=== PATIENT | male | born 1945 | race Caucasian/White ===

== ENCOUNTER 2016-12-31 15:45 | Emergency (ER) | payer OTHER ==
[2016-12-31 16:10] LABS: MANUAL DIFF NEEDED? NO
--- NOTE | 2016-12-31 16:17 | EKG Report ---
Test Performed on : 12/31/2016 3:59:27 PM Test Reason : dizziness Blood Pressure : / mmHG Vent. Rate : 074 BPM Atrial Rate : 074 BPM P-R Int : 172 ms QRS Dur : 098 ms QT Int : 396 ms P-R-T Axes : 055 -09 054 degrees QTc Int : 439 ms Normal sinus rhythm. Normal ECG When compared with ECG of 28-MAY-2016 09:24, Nonspecific T wave abnormality has replaced inverted T waves in Inferior leads Nonspecific T wave abnormality no longer evident in Anterolateral leads Unconfirmed Result
[2016-12-31 16:29] LABS: BASO% 0.5 % (0.0-0.8); EOS% 1.1 % (0.0-10.0); HEMATOCRIT 39.6 % (42.0-52.0); HEMOGLOBIN 12.9 g/dL (14.0-18.0); IMM GRAN# 0.02 X1000 (0.0-0.04); IMM GRAN% 0.2 % (0.0-0.5); LYMPH# 1.84 X1000 (1.2-3.4); LYMPH% 20.9 % (20.5-51.1); MCH 31.2 PG (27-31); MCHC 32.6 g/dL (33-37); MCV 95.7 FL (81-99); MONO# 0.66 X1000 (0.11-0.59); MONO% 7.5 % (1.7-9.3); MPV 9.8 FL (7.4-10.4); NEUT% 69.8 % (42.2-75.2); PLT 214 X1000 (130-400); RBC 4.14 XMIL (4.7-6.1)
[2016-12-31 16:48] LABS: AGAP 13; ALBUMIN 4.1 g/dL (3.5-5.0); ALKALINE PHOSPHATASE 73 U/L (32-122); BUN 16 mg/dL (8-22); CALCIUM 8.9 mg/dL (8.8-10.2); CHLORIDE 102 mmol/L (98-107); CK PROFILE 66 U/L (24-204); COSMO 281; GOT 18 U/L (10-34); GPT < 5 U/L (10-44); POTASSIUM 4.3 mmol/L (3.5-5.1); SODIUM 139 mmol/L (136-145); TCO2 24 mmol/L (25-35); TOTAL BILIRUBIN 0.23 mg/dL (0.20-1.00); TOTAL PROTEIN 6.7 g/dL (6.3-8.3)
--- NOTE | 2016-12-31 17:05 | PROVIDER DOCUMENTATION ---
HPI-General Adult - General Chief Complaint: Dizziness Stated Complaint: BP ISSUES/DIZZINESS Time Seen by Provider: 12/31/16 17:01 Source: patient Allergies/Adverse Reactions: Patient Allergies Allergy/AdvReac Type Severity Reaction Status Date / Time Penicillins Allergy Mild welps Verified 12/31/16 20:14 aspirin AdvReac Mild abd pain Verified 12/31/16 20:14 hydromorphone HCl * AdvReac confusion, Verified 12/31/16 20:14 [From Dilaudid] combative Home Medications: Home Medication List Medication Instructions Recorded Confirmed Last Taken Type Clopidogrel [Plavix] 75 mg PO DAILY 11/18/13 12/31/16 12/31/16 09:00 History PRAVAstatin [Pravachol] 40 mg PO DAILY 11/18/13 12/31/16 12/31/16 09:00 History Escitalopram Oxalate [Lexapro] 20 mg PO DAILY 12/25/13 12/31/16 12/31/16 09:00 History Meclizine HCl [Antivert] 25 mg PO 4XDAY PRN PRN #15 tablet 01/29/15 12/31/1604/13 14:00 Rx Amlodipine Besylate 10 mg PO DAILY 05/28/16 12/31/16 12/31/16 09:00 History Carbidopa/Levodopa [Sinemet 25/100] 1 - 1.5 each PO 4XDAY 05/28/16 12/31/1604/13 14:00 History Gabapentin 600 mg PO TID 05/28/16 12/31/16 12/31/16 14:00 History Lisinopril 20 mg PO DAILY 05/28/16 12/31/16 12/31/16 09:00 History Hydrocodone/APAP 5 mg/325 mg 1 each PO Q6H PRN PRN #60 tablet 06/01/16 12/31/16 12/31/16 14:00 Rx [[place]-5] Pantoprazole [Protonix] 40 mg PO DAILY@0700 #30 tablet 06/01/16 12/31/16 09:00 Rx Meclizine [Antivert] 12.5 mg PO TID #30 tablet 12/31/16 Unknown Rx - History of Present Illness -Gen Adult Nature of Presenting Problems: 71 y/o WM c/o 2 days of dizziness, hot flashes, and headaches. States his BP has been unpredictable. states he fell yesterday where he fell into the door due to the dizziness. Dizziness described as both light headedness and the room spinning. states he sees balc, spots when this occurs the dizziness is not related to position, but states when he lays back he sees black spots and the dizziness worsens. states BP has been going up and down, with the highest being 162/87, lowest being 96/50. No hx of stroke, PCI x 1 in 2004 Review of Systems - Adult - REVIEW OF SYSTEMS - ADULT Constitutional: reports: no symptoms reported. denies: chills, fever, fatique Eyes: reports: no symptoms reported. denies: decreased vision, blurred vision, double vision, eye pain Ears, Nose, Mouth & Throat: reports: no symptoms reported. denies: ear pain, nose pain, throat pain Cardiovascular: reports: no symptoms reported. denies: chest pain, palpitations Respiratory: reports: no symptoms reported. denies: cough, shortness of breath , wheezing Gastrointestinal: reports: no symptoms reported. denies: abdominal pain, diarrhea, nausea, vomiting Genitourinary: reports: no symptoms reported. denies: dysuria, discharge, frequency, incontinence Musculoskeletal: reports: no symptoms reported. denies: bone pain, back pain, muscle aches Integumentary: reports: no symptoms reported. denies: rash Neurological: reports: see HPI, dizziness/vertigo, headache/migraines. denies: ataxia, loss of balance, tremors Psychiatric: reports: no symptoms reported Endocrine: reports: no symptoms reported Hematologic/Lymphatic: reports: no symptoms reported Allergic/Immunologic: reports: no symptoms reported All Other Systems: Reviewed and Negative Past History - Adult - PAST MEDICAL HISTORY-ADULT Review of Records: reports: Old Records Reviewed, Nursing Assessment Review, Medications Reviewed Major Childhood Illnesses: reports: denies history Cardiovascular: reports: cardiac disease, HTN, hyperlipidemia Respiratory: reports: denies history Gastrointestinal: reports: GERD, ulcer, other (gastritis) Genitourinary: reports: denies history Musculoskeletal: reports: arthritis, chronic pain (back), fibromyalgia Neurological: reports: denies history Endocrine/Immune: reports: denies history Other Conditions: reports: denies history - PRIOR SURGERIES/PROCEDURES Surgical/Procedure History: reports: cardiac stent (2005), hernia repair, orthopedic (extremity) (left knee) - PRIOR HOSPITALIZATIONS Prior Hospitalizations: reports: none - IMMUNIZATION STATUS Childhood Immunizations: UTD Flu Vaccine: See Nurse Assessment - FAMILY HISTORY Family History: reviewed, not pertinent - SOCIAL HISTORY Smoking: denies Substance Use: none/never Alcohol Use Frequency: never Living Situation: family Physical Exam-General - PHYSICAL EXAM-ADULT Initial Vital Signs Reviewed: Yes - CONSTITUTIONAL General Appearance: appears well, alert, no apparent distress, other (dizzy upon standing) - EYES Eyes: PERRL/EOMI, pink conjunctivae, other (no nystagmus appreciated) - HEAD, EARS, NOSE, MOUTH & THROAT HENMT: normocephalic/atraumatic, moist mucous membranes, normal ENT inspection, TMs normal, pharynx normal. negative: TM abnormal - NECK Neck: non-tender, full range of motion, supple, normal inspection. negative: lymphadenopathy - RESPIRATORY Respiratory: chest non-tender, lungs clear, normal breath sounds, no pleuratic chest pain, no respiratory distress, no accessory muscle use. negative: respiratory distress, decreased breath sounds, accessory muscle use, crackles, rales, rhonchi, wheezing - CARDIOVASCULAR Cardiovascular: normal peripheral pulses, regular rate, rhythm - GASTROINTESTINAL (ABDOMEN) Abdominal Exam: normal bowel sounds, non tender, soft, no organomegaly, no pulsatile mass. 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 II-XII nml as tested, no motor/sensory deficits - PSYCHIATRIC Psych/Mental Status: normal mood/affect, normal thought content, normal thought process, oriented x 3 Progress - PLAN OF CARE/RESULTS Progress/Plan/Lab Results: Vital Signs Temp Pulse Pulse Pulse Pulse Resp BP 12/31/16 20:19 62 65 65 12/31/16 15:50 98.1 F 77 18 105/66 BP BP BP Pulse Ox 03/06/17 20:19 190/98 149/99 200/91 12/31/16 15:50 97 Penicillins Allergy (Mild, Verified 12/31/16 20:14) welps aspirin Adverse Reaction (Mild, Verified 12/31/16 20:14) abd pain hydromorphone HCl * [From Dilaudid] Adverse Reaction (Verified 12/31/16 20:14) confusion, combative Clopidogrel [Plavix] 75 mg PO DAILY 11/18/13 PRAVAstatin [Pravachol] 40 mg PO DAILY 11/18/13 Escitalopram Oxalate [Lexapro] 20 mg PO DAILY 12/25/13 Meclizine HCl [Antivert] 25 mg PO 4XDAY PRN PRN #15 tablet 01/29/15 Amlodipine Besylate 10 mg PO DAILY 05/28/16 Carbidopa/Levodopa [Sinemet 25/100] 1 - 1.5 each PO 4XDAY 05/28/16 Gabapentin 600 mg PO TID 05/28/16 Lisinopril 20 mg PO DAILY 05/28/16 Hydrocodone/APAP 5 mg/325 mg [[place]-5] 1 each PO Q6H PRN PRN #60 tablet Pantoprazole [Protonix] 40 mg PO DAILY@0700 #30 tablet 06/01/16 Laboratory 12/31/16 12/31/16 12/31/16 20:10 16:03 16:03 WBC RBC Hgb Hct MCV MCH MCHC RDW Std Deviation Plt Count MPV Immature Gran % (Auto) Neut % (Auto) Lymph % (Auto) [place] % (Auto) Eos % (Auto) Baso % (Auto) Immature Gran # (Auto) Neut # (Auto) Lymph # (Auto) [place] # (Auto) Eos # (Auto) Baso # (Auto) Sodium 139 Potassium 4.3 Chloride 102 Carbon Dioxide 24 L Anion Gap 13 BUN 16 Creatinine 1.2 Estimated GFR/1.73 m2 59 BUN/Creatinine Ratio 13 Glucose 141 H Calculated Osmolality 281 Calcium 8.9 Total Bilirubin 0.23 AST 18 ALT < 5 L Alkaline Phosphatase 73 Creatine Kinase 66 Troponin T < 0.010 Total Protein 6.7 Albumin 4.1 Globulin 2.6 Albumin/Globulin Ratio 1.6 Urine Source CLEAN CATCH Urine Color STRAW Urine Turbidity CLEAR Urine pH 6.5 Ur Specific [place] 1.005 Urine Protein NEGATIVE Ur Glucose (Stick) NEGATIVE Ur Ketones (Stick) NEGATIVE Urine Blood NEGATIVE Urine Nitrite NEGATIVE Urine Bilirubin NEGATIVE Urobilinogen Dipstick NORMAL Urine Leukocytes NEGATIVE Urine WBC (Auto) <10 Urine RBC (Auto) <10 U Epithel Cells (Auto) <10 Urine Bacteria (Auto) NEGATIVE 12/31/16 16:03 WBC 8.79 RBC 4.14 L Hgb 12.9 L Hct 39.6 L MCV 95.7 MCH 31.2 H MCHC 32.6 L RDW Std Deviation 13.0 Plt Count 214 MPV 9.8 Immature Gran % (Auto) 0.2 Neut % (Auto) 69.8 Lymph % (Auto) 20.9 [place] % (Auto) 7.5 Eos % (Auto) 1.1 Baso % (Auto) 0.5 Immature Gran # (Auto) 0.02 Neut # (Auto) 6.13 Lymph # (Auto) 1.84 [place] # (Auto) 0.66 H Eos # (Auto) 0.10 Baso # (Auto) 0.04 Sodium Potassium Chloride Carbon Dioxide Anion Gap BUN Creatinine Estimated GFR/1.73 m2 BUN/Creatinine Ratio Glucose Calculated Osmolality Calcium Total Bilirubin AST ALT Alkaline Phosphatase Creatine Kinase Troponin T Total Protein Albumin Globulin Albumin/Globulin Ratio Urine Source Urine Color Urine Turbidity Urine pH Ur Specific [place] Urine Protein Ur Glucose (Stick) Ur Ketones (Stick) Urine Blood Urine Nitrite Urine Bilirubin Urobilinogen Dipstick Urine Leukocytes Urine WBC (Auto) Urine RBC (Auto) U Epithel Cells (Auto) Urine Bacteria (Auto) Orders Category Date Time Status ED: Orthostatic Vital Signs (E as directed Care 12/31/16 17:04 Active HEAD W/O CONTRAST [CT] Stat Exams 12/31/16 17:04 Draft CBC WITH ELECTRONIC DIFF [HEME] Stat Lab 12/31/16 16:03 Completed CK PROFILE [SP CHEM] Stat Lab 12/31/16 16:03 Completed COMPREHENSIVE METABOLIC PANEL [CHEM] Stat Lab 12/31/16 16:03 Completed TROPONIN T Stat Lab 12/31/16 16:03 Completed URINALYSIS W/POSS RFLX CULT [URINALYSIS] Stat Lab 12/31/16 20:10 Completed EKG [EKG] Stat Ther 12/31/16 16:03 Draft Discussed patient with Dr. Zavala, agrees with treatment, disposition and plan - CT/MRI 1 CT Study: Head Impression: Normal (no blood. Mild chornic ischemic changes. per Dr. Hernandez, radiology) Departure - Departure Time of Disposition Order: 20:39 DIAGNOSIS: Dizziness, Labile hypertension Disposition: HOME 01 Certified Medical Emergency: Emergent Condition: Stable Additional Instructions: Follow up with Dr. Hawthorne and Dr. Wall, as well as your primary care physician ED Follow Up Instructions: You have been treated by a care provider in the Emergency Department. These instructions are being provided to you so you can have an understanding of how to care for yourself upon discharge. Upon discharge from the Emergency Department, you are responsible for making arrangements for follow-up care by a physician of your choice. Take all prescribed medications as directed. Return to the Emergency Department immediately for any new or worsening symptoms. You may call the Physician Referral phone number at [phone] to obtain a list of Physicians who are taking new patients. Prescriptions: Meclizine [Antivert] 12.5 mg PO TID #30 tablet Referrals: Brandon Bowen MD [Primary Care Provider] - Pablo Hawthorne MD [STAFF PHYSICIAN] - Abbi Wall III, MD [STAFF PHYSICIAN] - Attestation - Physician/ JERE Attestation Patient care was provided by Advanced Practice Provider:: Yes Advanced Practice Provider:: Haven Soto Advanced Practice Provider documentation review:: The Mid-level provider documentation, treatment plan and medical decision making was reviewed by the physician who agrees with all treatment and medical decision making by the P.
--- NOTE | 2016-12-31 17:22 | ED EKG INTERP ---
EKG Interpretation - EKG Time of EKG reading by physician:: 15:59 EKG Read and Signed by:: Ryan Pope EKG Interpretation (*Must complete 3 of following elements*): Normal Rate: 74 Rhythm: NSR [place]: normal QRS: normal [place] Interval: normal ST Wave: normal Attestation - Scribe Verification/Attestation Scribe:: Chase Main Acting as Scribe for:: Ryan Pope Scribe documention review:: This chart was documented by a scribe and accurately reflects the service the provider performed and the decisions made by the provider. Physician Attestation - Physician Attestation I, the provider, attest to the following statement:: Ryan Pope Physician documentation Attestation:: This documentation recorded by the scribe accurately reflects the service I personally performed and the decisions made by me.
[2016-12-31 20:16] LABS: URINE CULTURE NEEDED? NO; URINE MICRO REVIEW NEEDED? NO; URINE SOURCE CLEAN CATCH
[2016-12-31 20:25] LABS: BILIRUBIN URINE NEGATIVE (NEGATIVE); BLOOD URINE NEGATIVE (NEGATIVE); COLOR STRAW; GLUCOSE URINE NEGATIVE (NEGATIVE); LEUKOCYTES URINE NEGATIVE (NEGATIVE); NITRITE URINE NEGATIVE (NEGATIVE); PH URINE 6.5; PROTEIN URINE NEGATIVE (NEGATIVE); SP GRAVITY URINE 1.005; TURBIDITY URINE CLEAR (CLEAR); UROBILINOGEN URINE NORMAL (NORMAL)
[2016-12-31 20:27] LABS: UR EPITHELIAL CELLS <10 /HPF (<10); URINE BACTERIA NEGATIVE /HPF; URINE RBC <10 /HPF (<10); URINE WBC <10 /HPF (<10)
--- NOTE | 2016-12-31 20:29 | Diag Imaging Result Document ---
PROCEDURE NAME: HEAD W/O CONTRAST - 12/31/2016 CT BRAIN WITHOUT CONTRAST COMPARISON: 05/30/16. FINDINGS: No parenchymal hemorrhage. No epidural or subdural hematoma. No subarachnoid hemorrhage. No mass identified on this noncontrasted exam. There are mild microvascular ischemic changes. No hydrocephalus. No sinus opacification. No air fluid levels. IMPRESSION: 1. No hemorrhage. 2. Mild microvascular ischemic changes. A preliminary report was given at 6:24 p.m.
[2016-12-31] MEDS ORDERED: ANTIVERT PO ONE (20:40)
[2016-12-31 22:15] VITALS: BP 191/115
== END 2016-12-31 22:16 | disposition home or self-care (01) ==
LOC: ED 15:45
DX: I10 Essential (primary) hypertension (principal); R42 Dizziness and giddiness; R51 Headache; E78.5 Hyperlipidemia, unspecified; K21.9 Gastro-esophageal reflux disease without esophagitis; M19.90 Unspecified osteoarthritis, unspecified site; M79.7 Fibromyalgia; G89.29 Other chronic pain; Z79.899 Other long term (current) drug therapy; Z95.5 Presence of coronary angioplasty implant and graft; Z79.02 Long term (current) use of antithrombotics/antiplatelets
CPT/HCPCS: 70450; 80053; 81001; 82550; 82948; 84484; 85025; 93005

== ENCOUNTER 2019-06-01 13:14 | Observation (INO) ==
--- NOTE | 2019-06-01 15:54 | PROVIDER DOCUMENTATION ---
HPI-Abdominal Pain/GI Problem - General Chief Complaint: Male Stated Complaint: INCONTINENT Time Seen by Provider: 06/01/19 15:45 Source: patient Allergies/Adverse Reactions: Patient Allergies Allergy/AdvReac Type Severity Reaction Status Date / Time Penicillins Allergy Mild welps Verified 06/01/19 20:51 aspirin AdvReac Mild abd pain Verified 06/01/19 20:51 hydromorphone HCl * AdvReac confusion, Verified 06/01/19 20:51 [From Dilaudid] combative Home Medications: Home Medication List Medication Instructions Recorded Confirmed Last Taken Type Clopidogrel [Plavix] 75 mg PO DAILY 11/18/13 06/01/19 12/31/16 09:00 History PRAVAstatin [Pravachol] 40 mg PO DAILY 11/18/13 06/01/19 12/31/16 09:00 History Meclizine HCl [Antivert] 25 mg PO 4XDAY PRN PRN #15 tablet 01/29/15 06/01/19 12/31/16 14:00 Rx Carbidopa/Levodopa [Sinemet 25/100] 1 - 1.5 each PO 4XDAY 05/28/16 06/01/19 12/31/16 14:00 History Gabapentin 600 mg PO TID 05/28/16 06/01/19 12/31/16 14:00 History Pantoprazole [Protonix] 40 mg PO DAILY@0700 #30 tablet 06/01/16 06/01/19 12/31/16 09:00 Rx Amitriptyline [Elavil] 25 mg PO HS 06/01/19 06/01/19 Unknown History Duloxetine [Cymbalta] 30 mg PO DAILY 06/01/19 06/01/19 Unknown History Esomeprazole [Nexium] 40 mg PO QHS 06/01/19 06/01/19 Unknown History Fenofibrate 160 mg PO QAM 06/01/19 06/01/19 Unknown History Hydrocodone/Acetaminophen 06/01/19 06/01/19 Unknown History [Hydrocodone-Acetamin 7.5-325] Hydrocodone/Acetaminophen 7.5 mg PO Q6HR 06/01/19 06/01/19 Unknown History [Hydrocodone-Acetamin 7.5-325] Ondansetron HCl [Zofran] 8 mg PO TID 06/01/19 06/01/19 Unknown History Pimavanserin Tartrate [Nuplazid] 34 mg PO DAILY 06/01/19 06/01/19 Unknown History Valsartan 160 mg PO DAILY 06/01/19 06/01/19 Unknown History - History of Present Illness-ABD Nature of Presenting Problems: 73 YOM PRESENTS WITH C/O NAUSEA, DIARRHEA, URINARY RETENTION AND INCONTINENCE. THE RETENTION WAS PRESENT YESTERDAY, THIS MORNING THE PATIENT BEGAN HAVING FREQUENT DIARRHEA IN WHICH HE WAS "UNABLE TO MAKE IT TO THE BATHROOM". HIS AT BEDSIDE REPORTS YESTERDAY HE DID NOT URINATE FROM [facility] AND THIS MORNING HAS BEEN "URINATING A STEADY STREAM ALL DAY". THE PATIENT C/O ABDOMINAL PAIN ON EXAM, DENIES FEVER, CHILLS, CP, SOB. Abdominal Pain Onset Location: reports: generalized abdomen Pain Radiation: reports: no radiation Quality of Pain: reports: aching, fullness Severity in ED: reports: moderate Onset/Duration: reports: 2 days ago Timing: reports: still present Activities at Onset: reports: none Exposure to sick contacts?: No Modifying Factors: improves with: nothing (HAS TAKEN OTC IMMODIUM X 3) Associated Symptoms: reports: diarrhea, nausea Last BM: this afternoon Dark Stools Present?: reports: none noticed Rectal Bleeding: reports: none Rectal Pain: reports: none Emesis Description: reports: none Bruising or Bleeding Gums?: No Similar Symptoms Previously?: No Recently seen or treated by another doctor?: No Review of Systems - Adult - REVIEW OF SYSTEMS - ADULT Constitutional: reports: no symptoms reported. denies: see HPI, chills, fever, fatique, night sweats, weight gain, weight loss, other Eyes: reports: no symptoms reported. denies: see HPI, discharge, dry eyes, decreased vision, blurred vision, double vision, eye pain, redness, other Ears, Nose, Mouth & Throat: reports: no symptoms reported. denies: see HPI, ear discharge, ear pain, hearing loss, tinnitus, epistaxis, sinus problem, nose pain, loose teeth, mouth/dental pain, mouth swelling, hoarseness, throat pain, throat swelling, other Cardiovascular: reports: no symptoms reported. denies: see HPI, chest pain, edema, heart murmur, irregular heart rate, orthopnea, palpitations, poor circulation, PND, syncope, other Respiratory: reports: no symptoms reported. denies: see HPI, chronic cough, cough, dyspnea on exertion, excessive sputum production, hemoptysis, pleurisy, shortness of breath, wheezing, other Gastrointestinal: reports: see HPI, abdominal pain, diarrhea, nausea. denies: no symptoms reported, hematemesis, constipation, difficulty swallowing, frequent heartburn, poor appetite, rectal bleeding, vomiting, other Genitourinary: reports: no symptoms reported. denies: see HPI, dysuria, discharge, frequency, flank pain, frequent UTI's, hematuria, hesitency, incontinence, urinary retention, urgency, other Musculoskeletal: reports: no symptoms reported. denies: see HPI, bone pain, back pain, frequent leg cramps, joint pain, joint swelling, muscle aches, muscle weakness, neck pain, other Integumentary: reports: no symptoms reported. denies: see HPI, hives, hair loss, itching, mole changes, nail changes, rash, skin sores/ulcer, skin thick ening, other Neurological: reports: no symptoms reported. denies: see HPI, ataxia, dizziness/vertigo, headache/migraines, loss of balance, numbness, paresthesia, seizure, slurred speech, syncope, tremors, other Psychiatric: reports: no symptoms reported. denies: see HPI, anxiety, anti- depressant use, alcohol/drug dependence, depression, emotional problems, insomnia, panic attacks, suicidal thoughts, other Endocrine: reports: no symptoms reported. denies: see HPI, change in skin pigment, excessive sweating, goiter, cold intolerance, heat intolerance, increased hunger, increased thirst, polyuria, other Hematologic/Lymphatic: reports: no symptoms reported. denies: see HPI, blood clots, easy bruising, low blood count, lymphedema, prolonged bleeding, swollen lymph nodes, transfusions, other Allergic/Immunologic: reports: no symptoms reported. denies: see HPI, allergic reactions, allergic rhinitis, asthma, eczema, food allergy, frequent infections, hay fever, hives, positive PPD, urticaria, other Past History - Adult - PAST MEDICAL HISTORY-ADULT Review of Records: reports: Nursing Assessment Review, Social history reviewed & non-contributory. Major Childhood Illnesses: reports: denies history Cardiovascular: reports: cardiac disease, HTN, hyperlipidemia Respiratory: reports: denies history Gastrointestinal: reports: GERD, ulcer, other (gastritis) Obstetrical/Gynecological: reports: denies history Genitourinary: reports: denies history Musculoskeletal: reports: arthritis, chronic pain (back), fibromyalgia Neurological: reports: denies history Endocrine/Immune: reports: denies history Other Conditions: reports: denies history - PRIOR SURGERIES/PROCEDURES Surgical/Procedure History: reports: cardiac stent (2004), hernia repair, ort hopedic (extremity) (left knee) - PRIOR HOSPITALIZATIONS Prior Hospitalizations: reports: none - IMMUNIZATION STATUS Childhood Immunizations: UTD Flu Vaccine: See Nurse Assessment - FAMILY HISTORY Family History: reviewed, not pertinent Physical Exam-General - PHYSICAL EXAM-ADULT Initial Vital Signs Reviewed: Yes - CONSTITUTIONAL General Appearance: appears well, alert, no apparent distress - EYES Eyes: PERRL/EOMI - HEAD, EARS, NOSE, MOUTH & THROAT HENMT: normocephalic/atraumatic, moist mucous membranes, normal ENT inspection - NECK Neck: non-tender, full range of motion, supple - RESPIRATORY Respiratory: chest non-tender, lungs clear, normal breath sounds, no pleuratic chest pain, no respiratory distress, no accessory muscle use - CARDIOVASCULAR Cardiovascular: normal peripheral pulses, regular rate, rhythm, no edema, no gallop, no JVD, no murmur - GASTROINTESTINAL (ABDOMEN) Abdominal Exam: normal bowel sounds, distended, tenderness (GENERALIZED), other (HYPERACTIVE BS) - LYMPHATIC Lymphatic: no adenopathy - MUSCULOSKELETAL Back Exam: normal inspection Extremity: normal range of motion, non-tender Peripheral Pulses: dorsalis-pedis (R): 2+, dorsalis-pedis (L): 2+ - SKIN Integumentary: normal color, normal turgor, warm/dry - NEUROLOGIC Neurologic: grossly normal - PSYCHIATRIC Psych/Mental Status: normal mood/affect, oriented x 3 Progress - PLAN OF CARE/RESULTS Progress/Plan/Lab Results: Vital Signs - 8 hr 06/01/19 13:43 Temperature 98.0 F Pulse Rate 70 Respiratory Rate 19 Blood Pressure 106/70 O2 Sat by Pulse Oximetry 90 L Orders Category Date Time Status CBC WITH ELECTRONIC DIFF [HEME] Stat Lab 06/01/19 15:48 Uncollected COMPREHENSIVE METABOLIC PANEL [CHEM] Stat Lab 06/01/19 15:48 Uncollected MAGNESIUM [CHEM] Stat Lab 06/01/19 15:48 Uncollected UA NIMS W/REFLEX CULT PL [URINALYSIS] Stat Lab 06/01/19 15:48 Uncollected 2026- Admitting HPS paged. Result Diagrams: 06/01/19 16:06 06/01/19 16:06 - REASSESSMENT Reassessment #1 Time Reassessed: 20:20 Status: other (Assumed care from Nelli Garcia, [employer]. Assessed pt and he states that his nausea has improved. Abdomen distended and diffusely tender on exam. He is non-toxic in appearance. He requests pain medication stating that he takes [place] 7.5 mg QID. Reviewed renal function and compared to prior results. Most re cent results for comparison from 2017. Hydronephrosis and constipation noted on CT scan. Discussed case with Dr. Shafer who recommends admission for rehydration. Pt and family are in agreement with this plan.) - CONSULTS/PCP/HOSPITALIST Notification #1 *Consult/PCP/Hospitalist*: Dr. Nolan Time Discussed: 20:35 Reason/Comments: admission- acute kidney injury, hydronephrosis, urinary retention, diarrhea Consult Disposition: Will see in ED, Admit (requests bladder scan and [place] if needed) Departure - Departure Date of Disposition Decision: 06/01/19 Time of Disposition Decision: 20:34 DIAGNOSIS: Acute kidney injury, Urinary retention Diarrhea Qualifiers: Diarrhea type: unspecified type Qualified Code(s): R19.7 - Diarrhea, unspecified Constipation Qualifiers: Constipation type: unspecified constipation type Qualified Code(s): K59.00 - Constipation, unspecified Hydronephrosis Qualifiers: Hydronephrosis type: unspecified Qualified Code(s): N13.30 - Unspecified hydronephrosis Disposition: ADMITTED INPATIENT 09 Certified Medical Emergency: Emergent Condition: Stable Referrals and Follow-Ups: Brandon Bowen MD [Primary Care Provider] - - Critical Care Note This patient required my direct & personal management of CC.: No Attestation - Physician/ JERE Attestation Patient care was provided by Advanced Practice Provider:: Yes Advanced Practice Provider:: Oscar Dobbins Advanced Practice Provider documentation review:: The Mid-level provider documentation, treatment plan and medical decision making was reviewed by the candido emanuel who agrees with all treatment and medical decision making by the MLP. The physician spent face to face time with patient:: No Advanced Practice Provider documentation review:: Supervising physician onsite and consulted in the evaluation and care of this patient. The physician did not have a face to face encounter with the patient.
[2019-06-01 16:24] LABS: URINE SOURCE CLEAN CATCH
[2019-06-01 16:26] LABS: BASO# 0.03 X1000 (0.0-0.2); BASO% 0.3 % (0.0-0.8); EOS# 0.12 X1000 (0.0-0.7); EOS% 1.3 % (0.0-10.0); HEMATOCRIT 34.8 % (42.0-52.0); HEMOGLOBIN 11.7 g/dL (14.0-18.0); LYMPH# 1.56 X1000 (1.2-3.4); LYMPH% 16.6 % (20.5-51.1); MCH 31.1 PG (27-31); MCHC 33.6 g/dL (33-37); MCV 92.6 FL (81-99); MONO# 0.95 X1000 (0.11-0.59); MONO% 10.1 % (1.7-9.3); MPV 9.8 FL (7.4-10.4); NEUT# 6.72 X1000 (1.4-6.5); NEUT% 71.7 % (42.2-75.2); PLT 214 X1000 (130-400); RBC 3.76 XMIL (4.7-6.1); RDW 13.3 % (11.5-14.5); WBC 9.38 X1000 (4.8-10.8)
[2019-06-01 16:36] LABS: BILIRUBIN URINE NEGATIVE (NEGATIVE); BLOOD URINE TRACE (NEGATIVE); COLOR YELLOW; GLUCOSE URINE NEGATIVE (NEGATIVE); KETONE URINE NEGATIVE (NEGATIVE); LEUKOCYTES URINE NEGATIVE (NEGATIVE); NITRITE URINE NEGATIVE (NEGATIVE); PH URINE 5.5; PROTEIN URINE NEGATIVE (NEGATIVE); SP GRAVITY URINE 1.014; TURBIDITY URINE CLEAR (CLEAR); UR EPITHELIAL CELLS <10 /HPF (<10); URINE BACTERIA NEGATIVE /HPF; URINE RBC <10 /HPF (<10); URINE WBC <10 /HPF (<10); UROBILINOGEN URINE NORMAL (NORMAL)
[2019-06-01 17:03] LABS: ALB/GLOB RATIO 1.6; ALBUMIN 4.1 g/dL (3.5-5.0); CALCIUM 9.4 mg/dL (8.8-10.2); CREATININE 1.5 mg/dL (0.7-1.2); MAGNESIUM 2.2 mg/dL (1.5-2.7); POTASSIUM 3.9 mmol/L (3.5-5.1); TOTAL BILIRUBIN 1.24 mg/dL (0.20-1.00); TOTAL PROTEIN 6.6 g/dL (6.3-8.3)
[2019-06-01] MEDS ORDERED: ZOFRAN IV ONE (17:08)
[2019-06-01] MEDS ORDERED: NS 1,000 ML IV ONE ×2 (17:08→20:32)
--- NOTE | 2019-06-01 19:08 | Diag Imaging Result Doc PS360 ---
EXAM: CT ABDOMEN/PELVIS W/O CONTRAST 06/01/2019 HISTORY: ABDOMINAL PAIN, TENDERNESS, DISTENTION TECHNIQUE: This exam was performed using automated exposure control, adjustment of mA or kV according to patient size, and/or use of iterative reconstruction technique. COMMENT: The current study is compared with the previous examination of 06/22/2014. The visualized portion of the chest is unchanged. There is a fairly large hiatal hernia. There is bilateral hydronephrosis and hydroureter. This was not the case previously. There has been cholecystectomy. There is a fairly large amount of stool in the colon. The urinary bladder isn't distended. There are bilateral Hutch diverticula. There is no evidence of ureterolithiasis. There is a fairly large amount of stool in the rectum. The appendix is normal in appearance. There are postsurgical changes in the lumbar spine. There is no evidence of acute bony abnormality. IMPRESSION: Hiatal hernia. Constipation. Urinary retention in the bladder with bilateral hydronephrosis. Electronically signed by John Shine 06/01/2019 7:06 PM
[2019-06-01] MEDS ORDERED: NORCO-7.5 PO ONE (20:27)
--- NOTE | 2019-06-01 21:57 | HISTORY AND PHYSICAL ---
PRIMARY CARE PHYSICIAN: Dr. Brandon Bowen. CHIEF COMPLAINT: Constipated, difficulty urinating. HISTORY OF PRESENTING ILLNESS: A 73-year-old male with a history of hypertension, hyperlipidemia, coronary artery disease and Parkinson's who had presented to emergency department with 2 days history of having difficulty urinating. The patient states that he was also constipated and recently he had some loose stools also. He was evaluated in the emergency department. He had imaging done which did show urinary retention with bilateral hydronephrosis and also constipation. Due to his presenting symptoms, it was thought that we will place him for observation for further evaluation and management. At the time of my examination, the patient denied any headache, fever, chills, hemoptysis, melena, weight changes, but complained of urinary retention. He states it is somewhat better. PAST MEDICAL HISTORY: Includes hypertension, hyperlipidemia, coronary disease, fibromyalgia, GERD, Parkinson's. PAST SURGICAL HISTORY: Cervical fusion. Left knee replacement, back surgery, cholecystectomy, bilateral mastectomy, coronary stent. ALLERGIES: Penicillin, aspirin, hydromorphone and morphine. CURRENT MEDICATIONS: Amitriptyline 25 mg p.o. at bedtime, carbidopa levodopa 1 tablet 4 times a day, Plavix 75 mg p.o. daily, Cymbalta 30 mg p.o. daily, Nexium 40 mg p.o. at bedtime, fenofibrate 160 mg p.o. q.a.m., gabapentin 600 mg p.o. t.i.d., [place] 7.5 one p.o. q.6 hours, meclizine 25 mg 4 times a day, pravastatin 40 mg p.o. daily, valsartan 160 mg p.o. daily and Nuplazid 34 mg p.o. daily. SOCIAL HISTORY: He is a former smoker. No history of alcohol or illicit drug use. FAMILY HISTORY: No history of coronary disease. REVIEW OF SYSTEMS: Fourteen-point review of system as listed in HPI. Other systems negative. PHYSICAL EXAMINATION: GENERAL: Cooperative, friendly male. He is resting more comfortably now. VITAL SIGNS: Temperature 98 degrees, pulse 78, respirations 16, blood pressure 189/95. HEENT: Atraumatic, normocephalic. Extraocular movements intact. PERRLA. NECK: No masses. CHEST: Clear to auscultation. CARDIOVASCULAR: Regular rate and rhythm. ABDOMEN: Soft. Positive bowel sounds. EXTREMITIES: No edema. NEUROLOGIC: He is awake, alert, oriented x3. : Some bladder distention. EXTREMITIES: No edema. SKIN: Warm. LABORATORIES AND STUDIES: WBCs 9.38, hemoglobin 11.7, hematocrit 34.8, platelets 214,000. Sodium 136, potassium 3.9, chloride 98, CO2 24, BUN is 21, creatinine 1.5, glucose 115. CT of the abdomen and pelvis shows constipation, urinary retention and bladder with bilateral hydronephrosis. ASSESSMENT: A 73-year-old male with a history of hypertension, coronary disease, hyperlipidemia and Parkinson's who present to emergency department with 2 days history of difficulty urinating and also constipation. He was evaluated in the emergency department. Due to his presenting symptoms, we will place him for observation for further evaluation and management. ASSESSMENT: 1. Urinary retention. 2. Constipation. 3. Hypertension. 4. Parkinson's. PLAN: 1. We will admit patient to medical floor with telemetry. 2. We will insert Addison catheter. Start patient on Flomax. 3. Consult Urology. 4. We will start patient on a bowel regimen and add MiraLAX. 5. We will monitor blood pressure closely. 6. We will restart his Parkinson's medications. 7. Put patient on deep vein thrombosis prophylaxis with sequential compression devices. 8. We will continue to follow and reassess. Make further recommendation based on patient's clinical course. cc: Zachery Nolan MD
[2019-06-01] MEDS: FLOMAX PO SCH (22:38)
[2019-06-01] MEDS: NS 1,000 ML IV SCH (22:38)
[2019-06-02 07:56] LABS: BASO# 0.03 X1000 (0.0-0.2); BASO% 0.4 % (0.0-0.8); EOS% 2.7 % (0.0-10.0); HEMATOCRIT 34.6 % (42.0-52.0); HEMOGLOBIN 11.3 g/dL (14.0-18.0); LYMPH# 1.25 X1000 (1.2-3.4); LYMPH% 17.1 % (20.5-51.1); MCHC 32.7 g/dL (33-37); MCV 95.1 FL (81-99); MONO# 0.73 X1000 (0.11-0.59); NEUT# 5.09 X1000 (1.4-6.5); NEUT% 69.8 % (42.2-75.2); PLT 200 X1000 (130-400); RBC 3.64 XMIL (4.7-6.1); RDW 13.6 % (11.5-14.5)
[2019-06-02] MEDS: FLOMAX PO SCH (08:06)
[2019-06-02 08:17] LABS: AGAP 9; BUN 14 mg/dL (8-22); CALCIUM 8.6 mg/dL (8.8-10.2); CHLORIDE 109 mmol/L (98-107); COSMO 289; ESTIMATED GFR > 60; GLUCOSE 101 mg/dL (70-104); POTASSIUM 4.1 mmol/L (3.5-5.1); SODIUM 145 mmol/L (136-145); TCO2 27 mmol/L (25-35)
[2019-06-02] MEDS: NS 1,000 ML IV SCH (09:02)
[2019-06-02] MEDS ORDERED: NORCO-7.5 PO ONE (10:03)
[2019-06-02] MEDS ORDERED: ZOFRAN PO PRN (12:37)
[2019-06-02] MEDS ORDERED: ANTIVERT PO PRN (12:37)
[2019-06-02] MEDS: PLAVIX PO SCH (13:04)
[2019-06-02] MEDS: PRAVACHOL PO SCH (13:04)
[2019-06-02] MEDS: NEURONTIN PO SCH ×2 (13:05→16:26)
[2019-06-02] MEDS: SINEMET 25/100 PO SCH ×3 (13:05→20:43)
[2019-06-02] MEDS ORDERED: ZOSTRIX TOP PRN (14:21)
--- NOTE | 2019-06-02 14:52 | PROGRESS NOTE ---
DATE: 06/02/2019 INTERVAL HISTORY: Mr. Castro was admitted overnight for acute kidney injury, bilateral hydronephrosis, urinary retention, and inability to void with some nausea and constipation. Since then, he did have a bowel movement. I discussed his clinical care with himself as well as his at bedside. I talked with them that probably the Cary is the culprit which has been causing his constipation and probably severe constipation related to urinary retention. I also discussed with them about discussing with his pain doctor for finding alternative medications for his chronic neck and back pain. He did have a good bowel movement in the morning time. He is denying any chest pain or shortness of breath. VITAL SIGNS: Temperature 98.7 degrees, pulse 72, respiratory rate 20, blood pressure 130/67, saturating 98% room air. PHYSICAL EXAMINATION: General: Does not appear in any acute distress. HEENT: Oral cavity is moist. Lungs: Air entry bilaterally equal. No wheeze, rhonchi, crackles. Cardiovascular: S1, S2 normal. No murmur, rub, or gallop. Abdomen: Soft, nontender. Active bowel sounds. He does have mild tenderness in the right abdominal quadrant. He does not have any suprapubic tenderness. Extremities: Mild lower extremity edema bilaterally. : He has a urine catheter. Neurologic: He is alert. He is oriented to himself and to place. He does appear to have mild memory impairment. He is able to lift both upper and lower extremity above ground level and no obvious facial droop. LABS: Suggestive of acceptable range of normocytic anemia, normal platelet count, normal WBC, hyperchloremia likely because of normal saline which I stopped, resolution of acute kidney injury. MICROBIOLOGY: No data. IMAGING: Abdomen and pelvis CT had hiatal hernia, constipation, urinary retention with bilateral hydronephrosis. ASSESSMENT AND PLAN: 1. Acute urinary retention. Due to Benign prostatic hyperplasia. Other factors could be possible severe constipation had contributed to it. Continue Addison catheter to drainage. Appreciate Urology recommendation about further Addison catheter management. His bilateral hydronephrosis is likely because of that. Continue oral tamsulosin for now. 2. Constipation. Likely because of chronic opioid use for chronic neck and back pain. Start patient on MiraLAX and bisacodyl to have 2 soft bowel movements on a regular basis. tells me he is supposed to take MiraLAX every day. However, he was not taking it on a regular basis which could have contributed to his constipation. 3. Acute kidney injury, likely postobstructive renal failure. Now renal function has improved after urinary catheter insertion and intravenous fluid which I will stop. 4. Others. Continue amitriptyline, duloxetine, gabapentin, Cary for chronic pain. Make Cary only as needed and start patient on lidocaine patches as well as capsaicin cream for chronic neck and back pain. 5. History of coronary artery disease requiring stent in 1989 and essential hypertension and hyperlipidemia. Continue home clopidogrel, fenofibrate, pravastatin, and valsartan. 6. Disposition. I am awaiting further Urology recommendation about Addison catheter management. Based on that, I would anticipate discharge later today or tomorrow. Plan of care discussed with the patient and his at bedside. All of their questions have been answered. cc: Yuri Flor MD MTDD
[2019-06-02] MEDS: LIDODERM TOP SCH (15:18)
[2019-06-02] MEDS: NORCO-7.5 PO PRN ×2 (16:24→22:32)
--- NOTE | 2019-06-02 19:50 | CONSULTATION ---
DATE OF CONSULTATION: 06/02/2019 ATTENDING AND REFERRING PHYSICIAN: Hospitalist. HISTORY OF PRESENT ILLNESS: This 73-year-old male was admitted with urinary retention. He was having some nausea and constipation. A CT stone search revealed mild bilateral hydronephrosis and a distended bladder. Also mentioned was constipation. The patient had a Addison catheter placed. His creatinine at admission was 1.5 and this morning after Addison catheter drainage and hydration his creatinine was down to the normal range of 1.0. The patient states he is feeling much better. He has had multiple bowel movements. He denies any previous urologic surgery. He has no history of kidney stones. He has had no problems with urinary infections or hematuria. PAST MEDICAL HISTORY: Hypertension, elevated cholesterol, coronary artery disease, Parkinson disease, gastroesophageal reflux disease, chronic back pains and history of bilateral breast masses. CURRENT MEDICATIONS: Documented on the chart. Flomax was started. PAST SURGICAL HISTORY: Cervical disk fusions, lower back surgery, left knee replacement, cholecystectomy, coronary artery stent placement, bilateral mastectomy. SOCIAL HISTORY: No recent tobacco or alcohol use. ALLERGIES: He is allergic to penicillin, aspirin, hydromorphone and morphine. REVIEW OF SYSTEMS: He denies any chest pains or pulmonary problems. He states his abdomen is feeling much better. He also has a history of peptic ulcers and has had a vagotomy and antrectomy. PHYSICAL EXAMINATION: General: A normally developed, well-nourished, age apparent, white male, oriented in all ways and cooperative. HEENT: Normal for age. Lungs: Clear. Cardiovascular: Regular rate and rhythm. Abdomen: Protuberant, soft. Well-healed midline and right upper quadrant scars. No hepatosplenomegaly or masses. Normal bowel sounds. : Normal male. Both testes are down. Scrotal exam is normal. No inguinal hernias. Addison catheter in place. Rectal: Normal sphincter tone. Prostate around 40 to 50 g, smooth, and symmetric. Extremities: No clubbing, cyanosis, or edema. Neuro: No focal deficits. LABORATORY EVALUATION: He has a white count of 7.3, hemoglobin 11.3, hematocrit of 34.6 and platelets are 200,000. Serum electrolytes are normal. BUN 14, creatinine is 1. CT stone search is as noted in the HPI. The patient also has a history of Parkinson disease and is on medication for that. IMPRESSION: 1. Enlarged prostate with obstructive voiding. 2. History of urinary retention. 3. Parkinson disease. 4. Resolved mild renal insufficiency. RECOMMEND: 1. Continuing Flomax at 0.4 mg a day. 2. Discharge home with Addison catheter. 3. Return to the Urology Clinic in 1 week for a voiding trial. 4. Discussed with the patient he has several risk factors for retention, #1 narcotic use causing constipation that can result in urinary retention. #2 mildly enlarged prostate. #3 Parkinson disease. Thank you for this consultation. cc: Miguel Vogt MD
[2019-06-02] MEDS: MIRALAX PO SCH (20:44)
[2019-06-02] MEDS ORDERED: NEXIUM PO SCH (21:00)
[2019-06-02] MEDS ORDERED: ELAVIL PO SCH (21:00)
[2019-06-02] MEDS: DULCOLAX PR SCH (22:05)
[2019-06-03] MEDS ORDERED: PROTONIX PO SCH (07:00)
[2019-06-03] MEDS: NORCO-7.5 PO PRN ×2 (07:41→13:47)
[2019-06-03] MEDS ORDERED: LOFIBRA PO SCH (09:00)
[2019-06-03] MEDS ORDERED: PATIENT'S OWN MED PO SCH (09:00)
[2019-06-03] MEDS ORDERED: DIOVAN PO SCH (09:00)
[2019-06-03] MEDS ORDERED: CYMBALTA PO SCH (09:00)
[2019-06-03 09:28] LABS: AGAP 11; BUN 18 mg/dL (8-22); CALCIUM 8.6 mg/dL (8.8-10.2); CHLORIDE 107 mmol/L (98-107); COSMO 290; ESTIMATED GFR > 60; GLUCOSE 118 mg/dL (70-104); POTASSIUM 4.1 mmol/L (3.5-5.1); SODIUM 144 mmol/L (136-145); TCO2 26 mmol/L (25-35)
[2019-06-03] MEDS: LIDODERM TOP SCH (11:29)
[2019-06-03] MEDS: MIRALAX PO SCH (11:29)
[2019-06-03] MEDS: DULCOLAX PR SCH (11:31)
[2019-06-03] MEDS: NEURONTIN PO SCH ×2 (11:33→13:48)
[2019-06-03] MEDS: PLAVIX PO SCH (11:34)
[2019-06-03] MEDS: PRAVACHOL PO SCH (11:35)
[2019-06-03] MEDS: SINEMET 25/100 PO SCH ×2 (11:35→13:48)
[2019-06-03] MEDS: FLOMAX PO SCH (11:43)
[2019-06-03 15:52] VITALS: BP 158/75
--- NOTE | 2019-06-06 16:03 | DISCHARGE SUMMARY ---
ADMISSION DATE: 06/01/2019 DISCHARGE DATE: 06/03/2019 CONSULTS: Urology, Dr. Vogt. PERTINENT STUDIES: CT abdomen and pelvis showing constipation and urinary retention, and bilateral hydronephrosis. Initial creatinine 1.5, discharge creatinine 1.0. DISCHARGE DIAGNOSES: 1. Urinary retention with bilateral hydronephrosis. 2. BPH. 3. Constipation. 4. Acute kidney injury. 5. Chronic pain. 6. Coronary artery disease. 7. Hyperlipidemia. HOSPITAL COURSE: Patient presented initially with difficulty urinating and constipation with some overflow diarrhea. Initial evaluation showed bilateral hydroureteronephrosis with acute kidney injury. Also constipation which may have contributed although the primary problem was favored to be his BPH. Addison was placed with rapid resolution of his hydronephrosis and improvement in acute kidney injury. He is placed on bowel regimen with improvement of his constipation. Urology was consulted and recommended sending the patient home with a Addison and on Flomax to follow up with them in a week for a voiding trial. The patient's chronic comorbidities were stable during his hospitalization. He was discharged home in stable condition. DISCHARGE VITALS: Temperature 98.5, pulse 71, respirations 18, blood pressure 158/75, O2 saturation 97%. DISCHARGE MEDICATIONS: Nexium 40 mg p.o. at bedtime, [place] 7.5/325 as previously prescribed, Cymbalta 30 mg p.o. daily, Elavil 25 mg p.o. at bedtime, fenofibrate 160 mg p.o. q.a.m., gabapentin 600 mg p.o. t.i.d., Nuplazid 34 mg p.o. daily, Plavix 75 mg p.o. daily, pravastatin 40 mg p.o. daily, Sinemet 4 times a day, valsartan 160 mg p.o. daily, Zofran 8 mg p.o. t.i.d. as needed, Antivert 25 mg p.o. 4 times a day as needed, Flomax 0.4 mg p.o. daily, MiraLAX 17 g daily, Protonix 40 mg daily. FOLLOWUP AND PLAN: Patient discharging home with Addison in place to follow up with Urology in a week for a voiding trial. If retention issues persist despite treatment of his BPH, then may need to consider trying to take him off the Elavil. It is not a strong effect but it could be contributing to his urinary retention. His Parkinson's may also play a role. Also follow up with PCP. MiraLAX daily to prevent further severe constipation. HALLEY
== END 2019-06-03 18:02 | disposition home health service (06) ==
LOC: 1N 13:14 → ED 13:14 → SUATTDRO 21:17
PROVIDERS: ATTEND Internal Medicine